=== PATIENT | male | born 1985 | race Caucasian/White ===

== ENCOUNTER 2018-08-10 07:14 | Emergency (ER) | payer OTHER ==
[~2018-08-10] VITALS: Ht 177.8 cm; Wt 106.6 kg
[~2018-08-10 07:14] MED LIST: DOXYCYCLINE 10100 MG PO; NOHOMEMEDICATIONS; NORCO 5-325 TA1 EACH PO
[2018-08-10] MEDS ORDERED: PREDNISONE 5 MG5 M1 PO (07:22)
[2018-08-10 08:22] VITALS: BP 131/84
== END 2018-08-10 08:23 | disposition home or self-care (01) ==
LOC: M.ERS 07:14
DX: L23.0 Allergic contact dermatitis due to metals (principal)